=== PATIENT | female | born 1980 | race African-American/Black ===

== ENCOUNTER → 2017-01-28 | Outpatient (CLI) | payer OTHER ==
--- NOTE | ~2017-01-28 | US98 ---
[facility] A Service of [facility] & [facility] RADIOLOGY TEXT RESULTS PATIENT: GWEN SALEH LOCATION: [facility] : 84 UNIT #: [id number] AGE: [address]: EDMUND MARIE MD SEX: F ORDER DR: [id number] [facility] [address] [place], [place] [address] [id number] O MR#: [id number] Acc #: [id number] NAME: GWEN SALEH : 1980 SEX: F STUDY DATE/TIME: 01/28/2017 13:06 UNIT: [facility] ROOM: STUDY DESCRIPTION: US Pelvic Non-OB Complete Attending Physician: Edmund Marie M.D. Referring Physician: Edmund Marie M.D. Ordering Physician: Vinny Marie M.D. Primary Care Physician: Edmund Marie M.D. MEDICAL IMAGING REPORT This report is preliminary unless electronic signature is present EXAM Pelvic ultrasound. INDICATIONS Pelvic pain on and off for 2 weeks. Pain is worse during menstruation. TECHNIQUE Stern-scale, color Doppler and spectral Doppler waveform analysis was performed through the pelvis both transabdominally and transvaginally. FINDINGS The patient's endometrium measures about 7 mm in thickness. There is a nabothian cyst seen adjacent to the cervix. Uterus is otherwise unremarkable. This patient has a partially cystic structure arising from the left ovary measuring 1.4 x 1.2 x 1.4 cm. There is a suggestion of mural nodule within it. This may simply reflect some debris within the cyst, but repeat ultrasound is recommended. There is also, well-circumscribed area measuring up to 1.8 x 1.4 x 2.1 cm which is basically isoechoic to ovarian parenchyma. No flow is seen within this area. It is also indeterminate. Patient has normal-appearing follicles on the right ovary. IMPRESSION 1. This patient has a complex appearing predominately cystic structure within the left ovary measuring up to 1.4 x 1.2 x 1.4 cm. This may simply reflect a benign hemorrhagic cyst, but I would suggest short-term sonographic followup in 6 weeks to document resolution. There is also an additional well-circumscribed area within the left ovary which is basically isoechoic to ovarian parenchyma which does not demonstrate any flow within it. This area measures 1.8 x 1.4 x 2.1 cm. In theory, this could reflect an additional hemorrhagic cyst, but it is not clearly cystic in appearance. Attention to this area on repeat sonogram in 6 weeks is recommended. If these areas [facility] A Service of [facility] RADIOLOGY TEXT RESULTS PATIENT: GWEN SALEH LOCATION: [facility] : 84 UNIT #: [id number] AGE: [address]: EDMUND MARIE MD SEX: F ORDER DR: christy, consideration for MRI is recommended. Dictated by... Mikaela Collado M.D. THIS IS AN ELECTRONICALLY VERIFIED REPORT Mikaela Collado M.D. at 01/29/2017 12:48 PM LIGIA/calvin TD: 01/28/2017 21:46 JOB #: [id number] MEDICAL IMAGING REPORT Page 1 of 1 COPY
== END | disposition home or self-care (01) ==
LOC: CGUS 12:57
DX: R10.9 Unspecified abdominal pain (principal); N83.8 Other noninflammatory disorders of ovary, fallopian tube and broad ligament
CPT/HCPCS: 76830; 76856